=== PATIENT | male | born 1995 | race African-American/Black ===

== ENCOUNTER 2021-02-20 19:15 | Emergency (ER) | payer SELFPAY ==
[~2021-02-20] VITALS: Ht 172.7 cm; Wt 79.0 kg
[2021-02-20 19:53] VITALS: BP 140/83
== END 2021-02-20 19:57 | disposition left against medical advice (07) ==
LOC: ER 19:15
DX: F10.129 Alcohol abuse with intoxication, unspecified (principal); Y90.9 Presence of alcohol in blood, level not specified